=== PATIENT | male | born 1985 | race Two or more races ===

== ENCOUNTER 2020-05-22 16:27 | Emergency (ER) | payer SELFPAY ==
[2020-05-22 16:39] VITALS: BP 139/106
[2020-05-22] MEDS ORDERED: LORAZEPAM 0.5MG TABLET PO ONE (17:00)
== END 2020-05-22 17:11 | disposition home or self-care (01) ==
LOC: ER 16:27
DX: T40.7X1A Poisoning by cannabis (derivatives), accidental (unintentional), initial encounter (principal); F12.188 Cannabis abuse with other cannabis-induced disorder; R00.2 Palpitations; F15.10 Other stimulant abuse, uncomplicated; R03.0 Elevated blood-pressure reading, without diagnosis of hypertension; Z76.0 Encounter for issue of repeat prescription; Y92.89 Other specified places as the place of occurrence of the external cause
CPT/HCPCS: 93005; 99283

== ENCOUNTER 2020-06-20 16:12 | Emergency (ER) | payer SELFPAY ==
[~2020-06-20] VITALS: Ht 160 cm; Wt 77.0 kg
[2020-06-20] MEDS ORDERED: OLAN20TA34 PO (16:26)
[2020-06-20 16:36] VITALS: BP 141/87
== END 2020-06-20 16:37 | disposition home or self-care (01) ==
LOC: ER 16:12
DX: Z76.0 Encounter for issue of repeat prescription (principal); Z86.59 Personal history of other mental and behavioral disorders
CPT/HCPCS: 99281

== ENCOUNTER 2020-07-19 16:59 | Emergency (ER) | payer SELFPAY ==
[~2020-07-19] VITALS: Ht 165.1 cm; Wt 65.0 kg
[~2020-07-19 16:59] MED LIST: OLAN20TA34 PO
[2020-07-19] MEDS ORDERED: QUET50TA MT (18:00)
[2020-07-19 18:05] VITALS: BP 134/93
== END 2020-07-19 18:10 | disposition home or self-care (01) ==
LOC: ER 16:59
DX: G47.00 Insomnia, unspecified (principal); Z76.0 Encounter for issue of repeat prescription
CPT/HCPCS: 99283

== ENCOUNTER 2020-08-03 17:03 | Emergency (ER) | payer SELFPAY ==
[~2020-08-03] VITALS: Ht 152.4 cm; Wt 77.0 kg
[~2020-08-03 17:03] MED LIST changes: +QUET50TA MT
[2020-08-03] MEDS ORDERED: LORAZEPAM 2MG/ML CPJ IM STA (17:19)
[2020-08-03] MEDS ORDERED: HALOPERIDOL LACTATE 5MG/ML VIAL IM STA (17:19)
[2020-08-03] MEDS ORDERED: DIPHENHYDRAMINE 50MG/ML VIAL IM STA (17:19)
[2020-08-03 17:40] LABS: BASOPHILS % 0.4 % (0.0-2.0); EOSINOPHILS % 2.2 % (0.0-5.0); HEMATOCRIT. 41.7 % (42.0-52.0); HEMOGLOBIN. 13.9 g/dL (14.0-18.0); MEAN CORPUSCULAR HEMOGLOBIN 28.4 pg (28.0-32.0); MEAN PLATELET VOLUME 8.1 fl (7.4-10.4); MONOCYTES % 8.1 % (2.0-8.0); NEUTROPHILS % 61.3 % (40.0-76.0); PLATELET 237 x1000/uL (130-400); RED BLOOD CELL COUNT 4.91 mill/uL (4.7-6.1); RED CELL DISTRIBUTION WIDTH 14.5 % (11.6-14.6)
[2020-08-03 17:47] LABS: CHLORIDE 110 mEq/L (98-107)
[2020-08-03 17:51] LABS: ETHANOL BLOOD < 10 mg/dL
[2020-08-03 17:53] LABS: CLARITY URINE CLEAR (CLEAR); COLOR URINE DARK YELLOW (YELLOW); KETONES URINE TRACE (NEGATIVE); LEUKOCYTE ESTERASE URINE NEGATIVE (NEGATIVE); NITRITE URINE NEGATIVE (NEGATIVE); OCCULT BLOOD URINE NEGATIVE (NEGATIVE); PH URINE 5.5 (4.5-8.0); PROTEIN URINE 1+ (NEGATIVE); SPECIFIC GRAVITY URINE 1.035 (1.005-1.030); UROBILINOGEN URINE 0.2 E.U./dL (0.2-1.0)
[2020-08-03 18:12] LABS: *AMPHETAMINES SCREEN URINE PRESUMTIVE POSITIVE (NEGATIVE)
[2020-08-03 18:13] LABS: *BARBITURATES SCREEN URINE NEGATIVE (NEGATIVE); *BENZODIAZEPINES SCREEN URINE NEGATIVE (NEGATIVE)
[2020-08-03 18:19] LABS: *COCAINE SCREEN URINE NEGATIVE (NEGATIVE); CANNABINOID URINE SCREEN PRESUMTIVE POSITIVE (NEGATIVE); METHADONE URINE SCREEN NEGATIVE (NEGATIVE); OPIATES URINE SCREEN NEGATIVE (NEGATIVE); PHENCYCLIDINE URINE SCREEN NEGATIVE (NEGATIVE)
[2020-08-04 16:37] VITALS: BP 125/74
== END 2020-08-04 16:39 | disposition home or self-care (01) ==
LOC: ER 17:03
DX: F19.10 Other psychoactive substance abuse, uncomplicated (principal); R45.850 Homicidal ideations; R45.1 Restlessness and agitation; F12.10 Cannabis abuse, uncomplicated; Z20.822 Contact with and (suspected) exposure to COVID-19
CPT/HCPCS: 36415; 80053; 80305; 80307; 80320; 80329; 81003; 85025; 96372; 99285; C9803; J1200; J1630; J2060; U0003; Z7610; G0480

== ENCOUNTER 2020-08-18 17:05 | Emergency (ER) | payer SELFPAY ==
[~2020-08-18] VITALS: Ht 160 cm; Wt 74.0 kg
[2020-08-18 18:11] VITALS: BP 139/91
[2020-08-18] MEDS ORDERED: QUET50TA MT (18:44)
== END 2020-08-18 19:03 | disposition home or self-care (01) ==
LOC: ER 17:05
DX: F31.9 Bipolar disorder, unspecified (principal); Z76.0 Encounter for issue of repeat prescription
CPT/HCPCS: 99283

== ENCOUNTER 2020-11-09 16:48 | Emergency (ER) | payer SELFPAY ==
[~2020-11-09] VITALS: Ht 165.1 cm; Wt 75.0 kg
[2020-11-09 17:06] VITALS: BP 147/110
[2020-11-09] MEDS ORDERED: QUET50TA MT (18:55)
== END 2020-11-09 19:14 | disposition home or self-care (01) ==
LOC: ER 16:48
DX: Z76.0 Encounter for issue of repeat prescription (principal); F20.9 Schizophrenia, unspecified
CPT/HCPCS: 99283

== ENCOUNTER 2022-01-17 19:20 | Emergency (ER) | payer SELFPAY ==
[~2022-01-17] VITALS: Ht 160 cm; Wt 78.0 kg
[2022-01-17 19:25] VITALS: BP 136/94
== END 2022-01-17 23:55 | disposition left against medical advice (07) ==
LOC: ER 19:20
DX: Z53.21 Procedure and treatment not carried out due to patient leaving prior to being seen by health care provider (principal); R07.89 Other chest pain
CPT/HCPCS: 93005